=== PATIENT | female | born 1940 | race Hispanic/Latino ===

== ENCOUNTER 2017-01-28 20:22 | Inpatient (IN) | payer MEDICARE, BC ==
[2017-01-28 20:51] LABS: BASO # 0.02 K/mm3 (0.0-2.0); BASO % 0.3 % (0.0-3.0); EOS # 0.2 (0.0-0.7); EOS % 2.2 % (1.5-5.0); GRAN # 3.61 (1.4-6.5); HEMOGLOBIN 12.4 gm/dL (12.0-16.0); LYMPH # 2.6 (1.2-3.4); LYMPH % 37.5 % (22.0-35.0); MEAN CELL VOLUME 87.9 fL (80.0-105.0); MEAN CORPUSCULAR HEMOGLOBIN 28.8 pg (25.0-35.0); MEAN CORPUSCULAR HGB CONC 32.7 g/dl (31.0-37.0); MEAN PLATELET VOLUME 11.3 fl (7.0-11.0); MONO # 0.5 (0.1-0.6); PLATELET COUNT 222 10^3/uL (120.0-450.0); RBC 4.31 10^6/uL (3.5-6.1); WHITE BLOOD COUNT 6.8 10^3/ul (4.5-11.0)
--- NOTE | 2017-01-28 20:59 | ED PDOC ---
Arrival/HPI - General Chief Complaint: Chest Pain Time Seen by Provider: 01/28/17 20:36 - History of Present Illness Narrative History of Present Illness (Text): 01/28/17 20:55 76yo female with 2 day duration exertional chest pain and dyspnea on exertion. pt states pain feels like pressure, located in the retrosternal region. Denies ripping or tearing sensation or radiation to the back. No n/v, no abd pain, no other complaints. Past Medical History - Provider Review Nursing Documentation Reviewed: Yes - Infectious Disease Hx of Infectious Diseases: None - Reproductive Menopause: Yes - Cardiac Hx Cardiac Disorders: Yes (cad) Hx Hypertension: Yes Other/Comment: stress test neg 10/16/12 - Hematological/Oncological Hx Cancer: Yes (breast ca 30 yrs ago, bilateral breast implants inserted soon after) Hx Chemotherapy: No (no chemo no radiation) - Musculoskeletal/Rheumatological Hx Arthritis: Yes (hands) Hx Falls: No - Gastrointestinal Hx Gastroesophageal Reflux: Yes - Psychiatric Hx Depression: No Hx Emotional Abuse: No Hx Physical Abuse: No Hx Substance Use: No - Surgical History Hx Appendectomy: Yes (pt was 11 yrs old) Hx Cholecystectomy: Yes Hx Coronary Stent: Yes (x1) - Anesthesia Hx Anesthesia: Yes Hx Anesthesia Reactions: No Hx Malignant Hyperthermia: No - Suicidal Assessment Feels Threatened In Home Enviroment: No Family/Social History Family/Social History: Unknown Family HX Smoking Status: Never Smoked Hx Alcohol Use: No Hx Substance Use: No Allergies/Home Meds Allergies/Adverse Reactions: Allergies pcn Adverse Reaction (Uncoded 01/28/17 20:32) RASH Home Medications: Home Meds Medication Instructions Recorded Confirmed Atorvastatin [Lipitor] 80 mg PO DAILY 10/16/12 01/28/17 Furosemide 20 mg PO DAILY 10/16/12 01/28/17 Metoprolol Tartrate 25 mg PO DAILY 10/16/12 01/28/17 Valsartan [Diovan] 80 mg PO DAILY 10/16/12 01/28/17 Aspirin [Ecotrin] 81 mg PO DAILY 01/04/13 01/28/17 Desloratadine [Desloratadine] 1 tab PO DAILY 02/18/14 01/28/17 Pantoprazole [Protonix EC Tab] 1 tab PO DAILY 02/18/14 01/28/17 Potassium Chloride [Klor-Con 10 meq PO DAILY 01/28/17 01/28/17 Sprinkle] Ranolazine [Ranexa] 500 mg PO DAILY 01/28/17 01/28/17 Physical Exam - Physical Exam Narrative Physical Exam (Text): 01/28/17 20:56 - Review of Systems Constitutional: Normal. absent: Fatigue, Weight Change, Fevers Eyes: Normal ENT: denies sore throat, denies tristhmus Respiratory: absent: Cough, Sputum Cardiovascular: cp, saldana absent: Palpitations, Syncope Gastrointestinal: Normal. absent: Abdominal Pain, Diarrhea, Nausea, Vomiting Genitourinary: Normal. absent: Dysuria, Frequency, Hematuria, vaginal bleeding Musculoskeletal: Normal. absent: Arthralgias, Back Pain, Neck Pain Skin: no rashes, no erythema Neurological: absent: Focal Weakness Endocrine: Normal Hemo/Lymphatic: Normal Psychiatric: No suicidal or homicidal ideations Physical exam Patient appears age appropriate in no distress, speaking full sentences without difficulty - Systems Exam Head: Present: Atraumatic, Normocephalic Pupils: Present: PERRL Extroacular Muscles: Present: EOMI Conjunctiva: Present: Normal Mouth: Present: Moist Mucous Membranes Neck: Present: Normal Range of Motion. No: MIDLINE TENDERNESS, Paraspinal Tenderness Respiratory/Chest: Present: Clear to Auscultation, Good Air Exchange. No: Respiratory Distress, Accessory Muscle Use, Tachypneic Cardiovascular: Present: Regular Rate and Rhythm, Normal S1, S2, Peripheal Pulses Present. No: Murmurs Abdomen: Present: Normal Bowel Sounds. No: Tenderness, Distention, Peritoneal Signs, Rebound, Guarding Back: Present: Normal Inspection. No: Midline Tenderness, Paraspinal Tenderness Upper Extremity: Present: Normal Inspection. No: Cyanosis, Edema Lower Extremity: Present: Normal Inspection. No: Edema Neurological: Present: GCS=15, Speech Normal, cranial nerves II through XII fully intact with no cerebellar abnormality, neurosensory fully intact. No focal neurological deficits. Skin: Present: Warm, Dry, Normal Color. No: Rashes Lymphatic: Present: OX3, NI, NC Psychiatric: Present: Alert, Oriented x 3, Normal Insight, Normal Concentration Vital Signs Reviewed: Yes Vital Signs Temp Pulse Resp BP Pulse Ox 01/28/17 21:16 45 L 16 120/50 L 100 01/28/17 20:25 98.1 F 51 L 19 134/65 95 Temperature: Afebrile Blood Pressure: Normal Pulse: Bradycardic Respiratory Rate: Normal Appearance: Positive for: Well-Appearing Pain Distress: None Mental Status: Positive for: Alert and Oriented X 3 Medical Decision Making ED Course and Treatment: 01/28/17 20:54 76yo female with hx of CAD, stent in the past, HTN, with exertional cp and saldana. No acute findings on PE pt states she took 325asa today Previous records reviewed, patient had a stress test on 04/14/15 which showed no abnormalities and ejection fraction of 73%. ekg shows sinus salina, 50bpm, no st-segment elevations. possible U-waves Differential includes but not limited to: electrolyte abnormality, ACS, CHF 01/28/17 21:14 Chest xray interpreted by ED physician shows no pneumothorax, no cardiomegaly, no infiltrates 01/28/17 23:[address] Newton, accepted tele/obs to his service pt aware of and agrees with plan states pain returned, NTG paste ordered, BP elevated - Lab Interpretations Lab Results: 01/28/17 20:40 01/28/17 20:40 Lab Results 01/28/17 20:40: Sodium 142, Potassium 4.1, Chloride 107, Carbon Dioxide 25, Anion Gap 14, BUN 25 H, Creatinine 1.0, Est GFR ( Amer) > 60, Est GFR ( Non-Af Amer) 54, Random Glucose 133 H, Calcium 9.4, Total Bilirubin 0.5, AST 39 , ALT 42, Alkaline Phosphatase 68, Lactate Dehydrogenase 649, Total Creatine Kinase 180, Troponin I < 0.01, NT-Pro-B Natriuret Pep 767 H, Total Protein 6.8, Albumin 4.0, Globulin 2.7, Albumin/Globulin Ratio 1.5 01/28/17 20:40: PT 10.7, INR 0.99, APTT 24.6 01/28/17 20:40: WBC 6.8, RBC 4.31, Hgb 12.4, Hct 37.9, MCV 87.9, MCH 28.8, MCHC 32.7, RDW 14.0, Plt Count 222, MPV 11.3 H, Gran % 53.0, Lymph % (Auto) 37.5 H, Glynn % (Auto) 7.0 H, Eos % (Auto) 2.2, Baso % (Auto) 0.3, Gran # 3.61, Lymph # 2.6, Glynn # 0.5, Eos # 0.2, Baso # 0.02 - RAD Interpretation Radiology Orders: 01/28/17 20:42 CHEST PORTABLE [RAD] Stat - Medication Orders Current Medication Orders: Discontinued Medications Aspirin (Aspirin Chewable) 324 mg PO STAT STA Stop: 01/28/17 20:38 Last Admin: 01/28/17 20:49 Dose: Aspirin (Aspirin Chewable) Confirm Administered Dose 324 mg .ROUTE .STK-MED ONE Stop: 01/28/17 20:47 Last Admin: 01/28/17 20:53 Dose: Nitroglycerin (Nitrostat Sl Tab) 0.3 mg SL STAT STA Stop: 01/28/17 20:38 Last Admin: 01/28/17 20:50 Dose: 0.3 mg Nitroglycerin (Nitrostat Sl Tab) Confirm Administered Dose 0.3 mg SL .STK-MED ONE Stop: 01/28/17 20:47 Last Admin: 01/28/17 20:53 Dose: Disposition/Present on Arrival - Present on Arrival Any Indicators Present on Arrival: No History of DVT/PE: No History of Uncontrolled Diabetes: No Urinary Catheter: No History of Decub. Ulcer: No History Surgical Site Infection Following: None - Disposition Have Diagnosis and Disposition been Completed?: Yes Diagnosis: Chest pain Disposition: HOSPITALIZED Disposition Time: 23:40 Patient Plan: Observation Condition: FAIR Discharge Instructions (ExitCare): Chest Pain (ED)
[2017-01-28 21:01] LABS: ALB/GLOB RATIO 1.5 (1.1-1.8); ALT/SGPT 42 U/L (7-56); AST/SGOT 39 U/L (15-39); BLOOD UREA NITROGEN 25 mg/dL (7-21); CALCIUM 9.4 mg/dL (8.4-10.5); GFR AFRICAN-AMERICAN > 60; GFR NON-AFRICAN AMERICAN 54
[2017-01-28 21:02] LABS: INR 0.99 (0.93-1.08); PARTIAL THROMBOPLASTIN TIME 24.6 Seconds (23.7-30.8); PROTHROMBIN TIME 10.7 Seconds (9.9-11.8)
[2017-01-28 21:13] LABS: B-TYPE NATRIURETIC PEPTIDE 767 pg/mL (0-450)
[2017-01-28 21:17] LABS: TROPONIN I < 0.01 ng/mL
[2017-01-28] MEDS ORDERED: Nitroglycerin 2% Ointment Foilpak UD TOP STA (23:37)
--- NOTE | 2017-01-29 02:48 | CP.PCM.PN ---
Subjective - Date & Time of Evaluation Date of Evaluation: 01/29/17 Time of Evaluation: 02:47 - Subjective Subjective: Patient was seen at bedside for Mobitz II on monitor for past half hour, asymptomatic. Has no sob, chest pain, nausea,sweating , palpitation. 76 year old white woman was admitted with exertional chest pain, sob. Has PMH: DM, corornary stent placement, obesity, HTN, breast cancer , b/l breast implant,arthritis, dyslipidemia, osteoprosis. Objective - Vital Signs/Intake and Output Vital Signs (last 24 hours): Temp Pulse Resp BP Pulse Ox 98.1 F 51 L 16 159/105 H 95 01/28/17 20:25 01/29/17 00:57 01/29/17 00:57 01/28/17 23:00 01/29/17 00:57 - Labs Labs: PT 10.7 Seconds (9.9-11.8) 01/28/17 20:40 INR 0.99 (0.93-1.08) 01/28/17 20:40 APTT 24.6 Seconds (23.7-30.8) 01/28/17 20:40 Laboratory Last Values WBC 6.8 10^3/ul (4.5-11.0) 01/28/17 20:40 RBC 4.31 10^6/uL (3.5-6.1) 01/28/17 20:40 Hgb 12.4 gm/dL (12.0-16.0) 01/28/17 20:40 Hct 37.9 % (36.0-48.0) 01/28/17 20:40 MCV 87.9 fL (80.0-105.0) 01/28/17 20:40 MCH 28.8 pg (25.0-35.0) 01/28/17 20:40 MCHC 32.7 g/dl (31.0-37.0) 01/28/17 20:40 RDW 14.0 % (11.5-14.5) 01/28/17 20:40 Plt Count 222 10^3/uL (120.0-450.0) 01/28/17 20:40 MPV 11.3 fl (7.0-11.0) H 01/28/17 20:40 Gran % 53.0 % (50.0-68.0) 01/28/17 20:40 Lymph % (Auto) 37.5 % (22.0-35.0) H 01/28/17 20:40 Hudson % (Auto) 7.0 % (1.0-6.0) H 01/28/17 20:40 Eos % (Auto) 2.2 % (1.5-5.0) 01/28/17 20:40 Baso % (Auto) 0.3 % (0.0-3.0) 01/28/17 20:40 Gran # 3.61 (1.4-6.5) 01/28/17 20:40 Lymph # 2.6 (1.2-3.4) 01/28/17 20:40 Hudson # 0.5 (0.1-0.6) 01/28/17 20:40 Eos # 0.2 (0.0-0.7) 01/28/17 20:40 Baso # 0.02 K/mm3 (0.0-2.0) 01/28/17 20:40 PT 10.7 Seconds (9.9-11.8) 01/28/17 20:40 INR 0.99 (0.93-1.08) 01/28/17 20:40 APTT 24.6 Seconds (23.7-30.8) 01/28/17 20:40 Sodium 142 mmol/L (132-148) 01/28/17 20:40 Potassium 4.1 mmol/L (3.6-5.0) 01/28/17 20:40 Chloride 107 mmol/L (98-107) 01/28/17 20:40 Carbon Dioxide 25 mmol/L (21-33) 01/28/17 20:40 Anion Gap 14 (10-20) 01/28/17 20:40 BUN 25 mg/dL (7-21) H 01/28/17 20:40 Creatinine 1.0 mg/dL (0.5-1.4) 01/28/17 20:40 Est GFR ( Amer) > 60 01/28/17 20:40 Est GFR (Non-Af Amer) 54 01/28/17 20:40 Random Glucose 133 mg/dL (70-110) H 01/28/17 20:40 Calcium 9.4 mg/dL (8.4-10.5) 01/28/17 20:40 Total Bilirubin 0.5 mg/dL (0.2-1.3) 01/28/17 20:40 AST 39 U/L (15-39) 01/28/17 20:40 ALT 42 U/L (7-56) 01/28/17 20:40 Alkaline Phosphatase 68 U/L (38-133) 01/28/17 20:40 Lactate Dehydrogenase 649 U/L (333-699) 01/28/17 20:40 Total Creatine Kinase 180 U/L (35-230) 01/28/17 20:40 Troponin I < 0.01 ng/mL 01/28/17 20:40 NT-Pro-B Natriuret Pep 767 pg/mL (0-450) H 01/28/17 20:40 Total Protein 6.8 g/dL (5.8-8.3) 01/28/17 20:40 Albumin 4.0 g/dL (3.0-4.8) 01/28/17 20:40 Globulin 2.7 gm/dL 01/28/17 20:40 Albumin/Globulin Ratio 1.5 (1.1-1.8) 01/28/17 20:40 - Constitutional Appears: Well, No Acute Distress - Head Exam Head Exam: ATRAUMATIC, NORMAL INSPECTION, NORMOCEPHALIC Additional comments: Obese. - Eye Exam Eye Exam: Normal appearance - ENT Exam ENT Exam: Normal External Ear Exam - Neck Exam Neck Exam: Normal Inspection - Respiratory Exam Respiratory Exam: NORMAL BREATHING PATTERN - Cardiovascular Exam Cardiovascular Exam: absent: JVD - GI/Abdominal Exam GI & Abdominal Exam: absent: Distended - Rectal Exam Rectal Exam: Deferred - Exam Additional comments: Deferred. - Extremities Exam Extremities Exam: Normal Inspection - Back Exam Back Exam: NORMAL INSPECTION - Neurological Exam Neurological Exam: Alert, Oriented x3 - Psychiatric Exam Psychiatric exam: Normal Affect, Normal Mood - Skin Skin Exam: Normal Color Assessment and Plan - Assessment and Plan (Free Text) Assessment: Mobitz II. block. Chest pain. Dysnea. DM. CAD. Hx coronary stent placement. Osteoporosis. Breast cancer. Plan: EKG---- Mbitz II block. Troponin stat. observation closely. Will discuss with Jewelry Appraiser.Did.03:30. Will keep pads on, code cart by room , will inform him if she becomes symptomatic.
--- NOTE | 2017-01-29 09:22 | CARD ---
APPROVED REPORT EKG Measurement Heart [id number] <Conclusion> Marked sinus bradycardia Abnormal ECG
--- NOTE | 2017-01-29 09:24 | CARD ---
APPROVED REPORT EKG Measurement Heart [id number] <Conclusion> Marked sinus bradycardia Abnormal ECG
--- NOTE | 2017-01-29 09:56 | RAD ---
HISTORY: cough COMPARISON: Comparison chest 12/16/2015. FINDINGS: LUNGS: No active pulmonary disease. . Slight elevation right hemidiaphragm could be due to eventration. PLEURA: No significant pleural effusion identified, no pneumothorax apparent. CARDIOVASCULAR: Heart size upper limits of normal. OSSEOUS STRUCTURES: Mild degenerative changes both shoulder girdles. VISUALIZED UPPER ABDOMEN: Normal. OTHER FINDINGS: None. IMPRESSION: No active disease.
[2017-01-29 12:10] VITALS: BMI 11.2
[2017-01-29] MEDS: Insulin Lispro (humaLOG) MEDIUM Coverage SC SCH (22:29)
[2017-01-30 07:01] VITALS: O2SAT 96
[2017-01-30 08:27] LABS: HDL CHOLESTEROL 46 mg/dL (29-60); LDL CHOLESTEROL 86 mg/dL (0-129)
[2017-01-30] MEDS: Insulin Lispro (humaLOG) MEDIUM Coverage SC SCH (08:30)
[2017-01-30] MEDS ORDERED: RANEXA 500MG PO SCH (15:58)
--- NOTE | 2017-01-30 22:13 | HP ---
HISTORY OF PRESENT ILLNESS: The patient is 76 years old. The patient states she has chest pain, pressure as if somebody is sitting on her chest. She had a similar feeling when she had angioplasty done in 2003. Denies any nausea, vomiting. No history of palpitations. No dizziness, no weakness. No history of cough, congestion, hemoptysis, or hematemesis. PAST MEDICAL HISTORY: Significant for 1. Hypertension. 2. Noninsulin-dependent diabetes. 3. Hyperlipidemia. 4. History of angioplasty in 2003 and she has a bare metal stent. SOCIAL HISTORY: Denies smoking, drinking, or alcohol use. She is and lives with her . ALLERGIES: SHE IS ALLERGIC TO PENICILLIN. MEDICATIONS AT HOME: She is on 1. Protonix 40 daily. 2. Diovan 80 mg daily. 3. Ranexa 500 daily. 4. K-Dur. 5. Lipitor 80 mg daily. 6. Aspirin 81 daily. 7. Metoprolol 25 daily. 8. Lasix 20 mg daily. REVIEW OF SYSTEMS: Significant for mild shortness of breath and chest pressure, but feels fine now. PHYSICAL EXAMINATION GENERAL: She is awake and alert, communicative. VITAL SIGNS: She is afebrile, pulse 47, respirations 20, blood pressure 140/71. CARDIOPULMONARY: S1 and S2 audible. No murmur. LUNGS: Bilateral fair air flow. No rhonchi or crackles. ABDOMEN: Soft, nontender, no rebound, obese. No hepatosplenomegaly. NEUROLOGICAL: She is awake and alert, able to communicate. EXTREMITIES: Bilateral legs: No edema, no ulcer. LABORATORY DATA: WBC 6.8, hemoglobin 12.4, hematocrit 37.9, platelets 222. PT 10.7, INR 0.99. Chemistry: Sodium 142, potassium 4.1, chloride 107, CO2 of 25, BUN 25, creatinine 1.0, blood sugar 133. LFTs are within normal limits. BNP 767. Two sets of cardiac enzymes are negative. ASSESSMENT: 1. Typical chest pain. 2. History of coronary artery disease, status post angioplasty. 3. Hypertension. 4. Noninsulin-dependent diabetes. PLAN: The patient has been started on statin. She is on beta alda, she is on aspirin. She was evaluated by Dr. Paula and plan is for cardiac cath on Tuesday. Ghanshyam Bejarano MD [facility] # [id number]
--- NOTE | 2017-01-31 01:02 | CON ---
DATE: 01/29/2017 REASON FOR CONSULTATION: Chest pain and shortness of breath. HISTORY OF PRESENT ILLNESS: The patient is a 76-year-old female, known case of coronary artery disease, status post PTCA in the past, status post PTCA about 10 years ago, history of hypertension, diabetes, hyperlipidemia, admitted with history that she is getting chest tightness and shortness of breath with minimal exertional along with dizziness and unsteadiness. She states the similar complaints she had when she had first time stent insertion. The patient had abnormal stress test in 12/2012, and following that, the patient had a cardiac catheterization on 01/05/2013. It showed patent stent in the ramus intermedius, RCA showed 30% to 40% stenosis, LV ejection fraction 65% to 70%. PAST MEDICAL HISTORY: Significant for hypertension, diabetes, hyperlipidemia, status post stent on 06/30/2004, cardiac catheterization on 01/05/2013 which showed patent stent. FAMILY HISTORY: Not significant. PERSONAL HISTORY: Denies smoking. Denies alcohol abuse. ALLERGIES: THE PATIENT ALLERGIC TO PENICILLIN. HOME MEDICATIONS: The patient is on Diovan 80 mg p.o. daily, metoprolol 25 mg daily, furosemide 20 daily, Lipitor 80 mg daily, Ranexa 500 mg b.i.d. REVIEW OF SYSTEMS: All the systems reviewed, positive mentioned in the history, otherwise negative. PHYSICAL EXAMINATION VITAL SIGNS: Blood pressure 147/67, respirations 20, pulse 62, temperature 98.7. HEENT: Head is normocephalic. Eyes: Pupils normal, conjunctivae normal. Nose and throat normal. NECK: JVP low, carotids equal. THORAX: AP diameter normal. CARDIOVASCULAR: S1 and S2. LUNGS: Clear. ABDOMEN: Soft, nontender. No hepatomegaly. Bowel sounds normal. EXTREMITIES: No clubbing. No cyanosis. LABORATORY DATA: Shows WBC 6.8, hemoglobin 12.4, hematocrit 37.9, platelets 222. Sodium 142, potassium 4.1, BUN 25, creatinine 1.0. Random glucose 133. Troponin x2 negative. BNP 767. TSH 3.9 was on 01/05/2013. Chest x-ray clear. EKG showed 2:1 Mobitz type II block. DIAGNOSES: 1. Chest pain. 2. Coronary artery disease. 3. History of stent insertion. 4. Shortness of breath. 5. Dizziness. 6. Unsteady on walking. 7. Hypertension. 8. Diabetes. 9. Obesity. 10. Hyperlipidemia. 11. Mobitz type II 2:1 block. PLAN: We will continue aspirin, Plavix. We will hold metoprolol. Atorvastatin 80 mg daily. Ranexa is not available in the pharmacy, so we will put her on isosorbide mononitrate 60 mg p.o. daily. Continue losartan 50 daily. We will do carotid ultrasound. Orthostatic blood pressures were recorded; they are normal. The patient may need cardiac catheterization. Mirella Paula MD
--- NOTE | 2017-01-31 02:34 | PN ---
DATE: 01/30/2017 The patient is in room 276, bed #1. REASON FOR CONSULTATION: Chest pain, shortness of breath, 2:1 block. SUBJECTIVE: The patient is known to have coronary artery disease, history of stent in the past, history of diabetes, osteoporosis, admitted with chest pain and shortness of breath on minimal exertion. She says it is a similar pain which she had when she had the first time when the stent was inserted. She also was feeling unsteady on walking and dizzy. The patient says her chest pain and shortness of breath are still present, but slightly less as compared to yesterday. The patient is lying flat in bed without any cardiac symptoms. PHYSICAL EXAMINATION VITAL SIGNS: Blood pressure 153/63, respirations 20, pulse 56, and temperature 97.7. HEENT: Head is normocephalic. Eyes: Pupils normal. Conjunctivae are normal. Nose and throat normal. NECK: JVP low. Carotids equal. Thorax AP diameter is normal. CARDIOVASCULAR: S1 and S2. LUNGS: Clear. ABDOMEN: Soft and nontender. No organomegaly. EXTREMITIES: No clubbing. No cyanosis. LABORATORY DATA: Troponin x2 negative. Sugar is 146. TSH 4.42. Cholesterol 156, HDL 46, and LDL 86. Monitor still shows 2:1 block with heart rate around 58 per minute. DIAGNOSES: Chest pain and shortness of breath on minimal exertion, coronary artery disease with history of stent insertion, diabetes mellitus, osteoporosis, high cholesterol. PLAN: The patient's stress test has been negative. The patient walks from bed to the bathroom, when she gets chest pain and shortness of breath, so the patient will need cardiac catheterization. We will try to arrange for it tomorrow. In the meantime, the patient will continue Losartan 50, aspirin 81, Plavix 75, atorvastatin 80 daily, and Ranexa 500 mg daily. TSH is 4.42, which is normal. We will follow with you. Mirella Paula MD
--- NOTE | 2017-01-31 05:39 | PN ---
SUBJECTIVE: The patient is 76 years old, seen on examination, sitting in chair, comfortable. No chest pain, no shortness of breath. PHYSICAL EXAMINATION: VITAL SIGNS: She is afebrile. Pulse 54, respirations 20,blood pressure 157/67. LUNGS: Bilateral fair airway flow. No rhonchi or crackles. HEART: S1 and S2 audible. ABDOMEN: Soft, nontender. No rebound. No guarding. NEUROLOGIC: The patient is awake and alert, communicative. LABORATORY DATA: Blood sugar is 146. ASSESSMENT: 1. Chest pain, currently chest pain free. 2. History of coronary artery disease, status post angioplasty. 3. Hypertension. 4. Hyperlipidemia. 5. Borderline hyperglycemia. 6. Peptic ulcer disease. PLAN: Currently, the patient is on beta alda, Lasix, aspirin, statins and Ranexa. She is scheduled to have cardiac cath done in a.m. Ghanshyam Bejarano MD
[2017-01-31] MEDS ORDERED: Lidocaine 2% Inj (20ml) ONE (10:36)
[2017-01-31] MEDS ORDERED: Midazolam 2 MG/2 ML VIAL ONE (11:19)
[2017-01-31] MEDS ORDERED: Sodium Chloride 0.9% 1,000 ML IV SCH (12:15)
[2017-01-31 14:12] LABS: BASO # 0.01 K/mm3 (0.0-2.0); BASO % 0.2 % (0.0-3.0); EOS # 0.1 (0.0-0.7); GRAN % 68.8 % (50.0-68.0); HEMOGLOBIN 12.6 gm/dL (12.0-16.0); LYMPH # 1.4 (1.2-3.4); LYMPH % 23.6 % (22.0-35.0); MEAN CORPUSCULAR HEMOGLOBIN 29.2 pg (25.0-35.0); MEAN CORPUSCULAR HGB CONC 33.6 g/dl (31.0-37.0); MEAN PLATELET VOLUME 11.5 fl (7.0-11.0); MONO # 0.4 (0.1-0.6); MONO % 6.4 % (1.0-6.0); PLATELET COUNT 252 10^3/uL (120.0-450.0); RBC 4.31 10^6/uL (3.5-6.1); RED CELL DISTRIBUTION WIDTH 13.8 % (11.5-14.5); WHITE BLOOD COUNT 6.1 10^3/ul (4.5-11.0)
[2017-01-31 14:16] LABS: BLOOD UREA NITROGEN 13 mg/dL (7-21); CALCIUM 8.9 mg/dL (8.4-10.5); GFR AFRICAN-AMERICAN > 60; GFR NON-AFRICAN AMERICAN > 60
[2017-01-31 14:25] VITALS: RESP 16
--- NOTE | 2017-01-31 14:55 | PN ---
DATE: 01/31/2017 SUBJECTIVE: The patient has no complaints of chest pain, shortness of breath, headaches, or dizziness. PHYSICAL EXAMINATION VITAL SIGNS: Temperature is 98, pulse is 51, blood pressure is 143/52, and respirations are 20. HEENT: Atraumatic. Anicteric sclerae. Moist mucosa. NECK: No JVD, adenopathy, or thyromegaly. CARDIOVASCULAR: S1 and S2. No murmurs, rubs, or gallops. RESPIRATORY: Good bilateral air entry. No wheezes, rales, or rhonchi. ABDOMEN: Bowel sounds are positive, soft, nontender, and nondistended. No hepatosplenomegaly. EXTREMITIES: Lower extremities, no edema. 2+ pulses. LABORATORY DATA: Creatinine is 1.0. ASSESSMENT: 1. Symptomatic bradycardia. 2. Diabetes type 2. 3. Coronary artery disease with stents. 4. Dyslipidemia. 5. Osteoporosis. PLAN: The patient is currently comfortable. She is on aspirin. She is going to continue with Lipitor for dyslipidemia. She cannot be on beta blockers because of bradycardia. She is on Plavix for stent. She is on losartan for hypertension. Carotid Dopplers have been ordered. Cath will be done today. We will await for the results after the cath. Terrell Newton MD
--- NOTE | 2017-01-31 18:29 | CARD ---
APPROVED REPORT Procedure(s) performed: Left Heart Catheterization HISTORY The patient is a 76 year-old female with a history of : diabetes mellitus with insulin treatment , previous diagnostic cath, previous PCI (The PCI date was 07/18/2003), hypertension , dyslipidemia , Hx of PTCA admitted with unstable angina and SOB on walking 1-2 block. INDICATION The indication(s) include : unstable angina . CASE TECHNIQUE The patient was brought urgently to the Cardiac Catheterization Laboratory in a fasting state and was prepped and draped in a sterile manner. The right femoral groin was infiltrated with 2% Lidocaine subcutaneous anesthesia. A 6 Fr nan sheath was inserted into the right femoral artery without difficulty. Coronary angiography was performed using coronary diagnostic catheters. The left coronary system was accessed and visualized with a Diagnostic ,JL3.5 %fr catheter. The right coronary system was accessed and visualized with a Diagnostic ,JR 3.5 5Fr catheter. The left ventricle was accessed and visualized with a Pigtail catheter. Left ventricular/Aortic Valve gradient assessed on pullback. Left ventriculogram was performed in ROSSI projection. A Right Heart Catheterization was performed with a 7 Fr. [place] catheter and pressure were recorded. A 7 sheath was inserted into the right femoral vein without difficulty. Coronary angiography was performed using coronary diagnostic catheters. Closure device was deployed with a 6 Fr Angioseal and mynx in venous access without any complications. The patient tolerated the procedure well and there were no complications associated with the procedure. Vessel Analysis The patient's coronary anatomy is co-dominant. The left main coronary artery is a large size vessel without significant stenosis. The left main trifurcates to the left anterior descending, circumflex, and ramus. The left anterior descending artery is a medium size vessel with diffuse calcification noted throughout this vessel and without significant stenosis. patent stent in proximal LAD, There is a 55% stenosis in the very distal segment. diffusely diseased, but no focal flow limiting stenosis The first diagonal branch is a small size vessel with intimal irregularities and without significant stenosis. The circumflex artery is a large size vessel with diffuse calcification noted throughout this vessel and without significant stenosis. The first obtuse marginal branch is a large size vessel with diffuse calcification noted throughout this vessel and without significant stenosis. The left posterior descending artery is a large size vessel with diffuse calcification noted throughout this vessel and without significant stenosis. The ramus intermedius artery is a medium size vessel with diffuse calcification noted throughout this vessel and without significant stenosis. patent stent in proximal segment. The right coronary artery is a large size vessel with diffuse calcification noted throughout this vessel and without significant stenosis. The right posterior descending artery is a medium size vessel with diffuse calcification noted throughout this vessel and without significant stenosis. Left Ventricle The left ventricle is normal in size with normal contractility. There was no cardiomyopathy. The left ventricular ejection fraction is estimated to be 60-65%. The left ventricular end diastolic pressure is 30 mmHg. There was no gradient across the aortic valve upon pullback. Right Heart Cath Findings The Right Atrial Pressure is 12 mmHg. The Right Ventricular Pressure is 41/15 mmHg. The Pulmonary Artery Pressure is 42/17 mmHg. mean of 22 The Pulmonary Catheter Wedge Pressure is 12 mmHg. PVR 1.9 Wood units. The cardiac output and index were assessed using thermo dilution. The Cardiac Output is 5.10 L/min. The Cardiac index is 2.72 L/min/m2. Conclusion non obstructive CAD limited to distal LAD diffusely diseased 55% , but no focal flow limiting stenosis. Patent stent in Proximal LAD / Ramus preserved LV Fx. Ef 60-65%, Edp30 mm of hg with respiratory variation. RHC; Ra-12, RV-41/15, PA 42/17 with a mean of 22, PCW-12 Co-5.1, CI-2.72, PVR-1.9 michelle unit Recommendations Aggressive Medical TherapyCardiac Risk Reduction Program Weight Loss Reduction Program CC; Thelma Hicks/ tommie.
[2017-01-31 18:47] VITALS: BP 162/68; PULSE 51; TEMP 97.7
--- NOTE | 2017-02-01 06:52 | PN ---
DATE: 01/31/2017 REASON FOR CONSULTATION: Follow up for chest pain, shortness of breath on walking, 2:1 block, status post cardiac catheterization. BRIEF CLINICAL HISTORY: This is a 76-year-old obese female with past medical history significant for diabetes, hypertension, hyperlipidemia, history of coronary artery disease, status post stent to the LAD, status post stent to ramus, admitted with chest pain and shortness of breath, walks half a block and has chest pain and tightness in the chest and shortness of breath. The patient underwent cardiac catheterization that revealed the patient has stent in the LAD, the patient has stent in the ramus intermedius, preserved LV function, with ejection fraction of 60-65%. Right heart catheterization revealed RA 12, RV 41/15, PA 47/17, mean PA 22, pulmonary capillary wedge pressure 12, cardiac output 5.1 L per minute, cardiac index 2.7 *------*, pulmonary vascular resistance is 1.9. The patient tolerated the procedure well, now is going to the floor. PHYSICAL EXAMINATION VITAL SIGNS: Temperature afebrile, heart rate 51, blood pressure 143/52. HEENT: PERRLA. Extraocular muscles intact. NECK: Supple. No carotid bruit or thyromegaly. CHEST: Clear to auscultation. HEART: S1 and S2 regular. ABDOMEN: Soft. EXTREMITIES: Clubbing and cyanosis negative. LABORATORY DATA: Blood workup: Last blood workup available in the chart is WBC 6.8, hemoglobin 12.4, hematocrit 37.9, platelet count 222 as of 01/28/2017. Last chemistry available as of 01/28/2017, sodium 142, potassium 4.1, chloride 107, carbon dioxide 25, anion gap of 25, BUN 1. TSH 4.42. Triglycerides 159, cholesterol 156, LDL 86, HDL 46. Troponin 0.01. IMPRESSION: Status post cardiac catheterization, nonobstructive coronary artery disease, patent stent to left anterior descending artery, patent stent to ramus. Right heart catheterization revealed RA 12, RV 41/15, PA pressure *------*/17, mean PA of 22, pulmonary capillary wedge pressure 12, ejection fraction 65%, EDP was elevated, and the patient has obesity, nonobstructive coronary artery disease with patent stents, pulmonary vascular resistance within the upper limit, upper limits of normal PA pressure. RECOMMENDATION: Aggressive control of blood pressure, diabetes, modification of lifestyle, modification of risk factors of coronary artery disease with emphasis made on weight reduction and diuretics. We will give 40 mg of Lasix in cathode builder. We will check SMA-7. Since the blood workup is not available, we will check SMA-7 at 1:00 p.m. If potassium is okay, we will give another dose of Lasix at 5:00 p.m. We will discuss with Dr. Diggs if the patient is okay to be discharged either tonight or tomorrow. We will follow with you. Thank you Dr. Diggs for the opportunity in taking care of the patient, Lilian Carroll. Mirella Santoro MD
== END 2017-01-31 19:18 | disposition home or self-care (01) | DRG 287 ==
LOC: ED 20:22 → ERH 23:37 → 2RSO 01-29 01:44 → OBSVTOIN 01-31 08:58
PROVIDERS: ADMIT Internal Medicine Nephrology; ATTEND Internal Medicine Nephrology
PROC: 4A023N7 Measurement of Cardiac Sampling and Pressure, Left Heart, Percutaneous Approach (ICD-10-PCS; principal; 2017-01-31)
PROC: B2111ZZ Fluoroscopy of Multiple Coronary Arteries using Low Osmolar Contrast (ICD-10-PCS; 2017-01-31)
PROC: B2151ZZ Fluoroscopy of Left Heart using Low Osmolar Contrast (ICD-10-PCS; 2017-01-31)
DX: I25.110 Atherosclerotic heart disease of native coronary artery with unstable angina pectoris (principal); I44.1 Atrioventricular block, second degree; E11.59 Type 2 diabetes mellitus with other circulatory complications; E11.65 Type 2 diabetes mellitus with hyperglycemia; I10 Essential (primary) hypertension; E78.5 Hyperlipidemia, unspecified; E78.00 Pure hypercholesterolemia, unspecified; K21.9 Gastro-esophageal reflux disease without esophagitis; K27.9 Peptic ulcer, site unspecified, unspecified as acute or chronic, without hemorrhage or perforation; M81.0 Age-related osteoporosis without current pathological fracture; Z79.4 Long term (current) use of insulin; E66.9 Obesity, unspecified; Z79.82 Long term (current) use of aspirin; Z79.84 Long term (current) use of oral hypoglycemic drugs; Z79.899 Other long term (current) drug therapy; Z85.3 Personal history of malignant neoplasm of breast; Z90.49 Acquired absence of other specified parts of digestive tract; Z95.5 Presence of coronary angioplasty implant and graft; Z98.82 Breast implant status; R00.1 Bradycardia, unspecified; Z68.31 Body mass index [BMI] 31.0-31.9, adult

== ENCOUNTER 2018-08-01 13:45 | Outpatient (CLI) | payer MEDICARE, BC | END 2018-08-01 13:46 | disposition home or self-care (01) | LOC: CARDIO 13:45 | DX: Z45.010 Encounter for checking and testing of cardiac pacemaker pulse generator [battery] (principal) ==